=== PATIENT | female | born 1970 | race Caucasian/White ===

== ENCOUNTER 2017-07-23 15:44 | Emergency (ER) | payer OTHER ==
[~2017-07-23] VITALS: Ht 162.6 cm; Wt 80.9 kg
[2017-07-23] MEDS ORDERED: SYNTHROID0.075 MG/T PO (16:25)
[2017-07-23] MEDS ORDERED: LASIX 20MG TABL20 MG PO (16:26)
[2017-07-23] MEDS ORDERED: TENORMIN 2525 MG/TAB PO (16:26)
[2017-07-23] MEDS ORDERED: TENORMIN 5050 MG/TAB PO (16:27)
[2017-07-23] MEDS ORDERED: CELEXA10 MG PO (16:28)
[2017-07-23] MEDS ORDERED: RESTORIL 77.5 MG/CAP PO (16:28)
[2017-07-23] MEDS ORDERED: NORVASC2.5 MG PO (16:28)
[2017-07-23 16:39] LABS: COLLECTION METHOD CLEAN CATCH
[2017-07-23 16:56] LABS: MUCOUS Present /lpf; PH 5 (5-8); SQUAMOUS EPITHELIAL 0-2 /hpf; URINE APPEARANCE Clear; URINE BACTERIA None Seen /hpf; URINE BILIRUBIN Negative (NEGATIVE); URINE BLOOD Negative (NEGATIVE); URINE COLOR Yellow; URINE GLUCOSE Negative (NEGATIVE); URINE KETONE Negative (NEGATIVE); URINE LEUKOCYTE ESTERASE Negative (NEGATIVE); URINE NITRATE Negative (NEGATIVE); URINE PROTEIN(semi-quant) Negative (NEGATIVE); URINE RBC 0-2 /hpf; URINE UROBILINOGEN Negative (NEGATIVE)
[2017-07-23] MEDS ORDERED: FLEXERIL 1010 MG/TAB PO (17:05)
[2017-07-23 18:48] VITALS: BP 172/104; PULSE 73; TEMP 98
== END 2017-07-23 19:09 | disposition home or self-care (01) ==
LOC: COL.ER 15:44
PROVIDERS: Physician Assistant
DX: M79.602 Pain in left arm (principal); M79.605 Pain in left leg; I10 Essential (primary) hypertension; F32.9 Major depressive disorder, single episode, unspecified; E03.9 Hypothyroidism, unspecified

== ENCOUNTER → 2017-07-29 | Outpatient (CLI) | payer OTHER ==
[~2017-07-29] MED LIST: CELEXA10 MG PO; FLEXERIL 1010 MG/TAB PO; LASIX 20MG TABL20 MG PO; NORVASC2.5 MG PO; RESTORIL 77.5 MG/CAP PO; SYNTHROID0.075 MG/T PO; TENORMIN 2525 MG/TAB PO; TENORMIN 5050 MG/TAB PO
== END ==
LOC: COL.RAD 12:23
DX: M79.602 Pain in left arm (principal); M79.605 Pain in left leg; R53.1 Weakness
CPT/HCPCS: A9585